=== PATIENT | female | born 1980 | race Two or more races ===

== ENCOUNTER 2023-02-24 20:16 | Emergency (ER) | payer OTHER ==
[~2023-02-24] VITALS: Ht 160 cm; Wt 63.0 kg
== END 2023-02-24 22:22 | disposition home or self-care (01) ==
LOC: ER 20:16
DX: H00.033 Abscess of eyelid right eye, unspecified eyelid (principal); Z91.041 Radiographic dye allergy status; Z91.013 Allergy to seafood